=== PATIENT | male | born 2000 | race Caucasian/White ===

== ENCOUNTER 2019-08-13 16:02 | Emergency (ER) | payer SELFPAY ==
[~2019-08-13] VITALS: Ht 177 cm; Wt 60.0 kg
--- OUTSIDE RECORDS SUMMARY | 2019-08-13 16:07 | XMS REPORT ---
Author Author Valerio SCHULTE Y Organization [facility] Address [address] [place] [address] Care Team Providers Care Systems Test Analyst Name Role Phone NATASHA SCHULTE Unavailable PROBLEMS Type Condition ICD9-CM Code GYP20-NI Code Onset Dates Condition S tatus SNOMED Code Problem GARDASIL (HPV) DX V04.89 Active 42 6966185 Problem MENINGOCOCCAL DX V03.89 Active 235 19351 ALLERGIES No Information ENCOUNTERS Encounter Location Date Diagnosis [facility] [address] [id number] [id number] Jun, Dental examination Z01.20 [facility] [address] [id number] [place] [id number] May, Dental examination Z01.20 [facility] [address] [id number] [place] [id number] Apr, Dental examination Z01.20 [facility] [address] [id number] [place] [id number] Mar, Dental examination Z01.20 [facility] [address] [id number] [place] [id number] Jan, Dental examination Z01.20 [facility] [address] [id number] [place] [id number] Oct, Acute diffuse otitis externa of both ear s H60.313 [facility] [address] [id number] [place] [id number] Oct, Dental examination Z01.20 [facility] [address] [id number] [place] [id number] Jun, Dental examination Z01.20 [facility] [address] [id number] [place] [id number] 10 May, 2016 Encounter for dental examination and juan diego aning without abnormal findings Z01.20 [facility] [address] [facility]07757G [place] [id number] 14 Mar, 2016 Sports physical Z02.5 ; Exercise counseling Z71.89 and Dietary counseling Z71.3 [facility] [address] [id number] [place] [id number] Feb, Seborrheic dermatitis L21.9 and Acne vul garis L70.0 [facility] [address] [id number] [facility] [place] [id number] Nov, Scabies B86 [address] [id number] [place] [id number] 09 Jul, 2015 Sports physical Z02.5 ; Exercise counselor nurses' association ing Z71.89 and Dietary counseling Z71.3 [facility] [address] [facility] [address] [id number] [facility] [place] [id number] Apr, Seborrheic dermatitis L21.9 and Impacted cerumen of right ear H61.21 [facility] [address] [address] Aug, [facility] [address] [address] Aug, [facility] [address] [address] Jul, [facility] [address] [address] Jul, [facility] [address] [address] Jul, [facility] [address] [address] Jul, [facility] [address] [address] 14 Feb, 2013 [facility] [address] [address] Feb, [facility] [address] [facility]75[address] [place] [address] Nov, [facility] [address] [facility] [place] [address] Jul, [facility] [address] [facility] [place] [address] Feb, [facility] [address] [id number] [place] [address] Feb, [facility] [address] [facility] [place] [address] Feb, [facility] [address] [facility] [place] [address] Feb, IMMUNIZATIONS No Known Immunizations SOCIAL HISTORY Never Assessed REASON FOR VISIT PLAN OF CARE VITAL SIGNS Height 64 in 2013-08-03 Weight 107 lbs 2013-08-03 Temperature 97.1 degrees Fahrenheit 2013-08-03 Heart Rate 88 bpm 2013-08-03 Respiratory Rate 16 2013-08-03 Blood pressure systolic 100 mmHg 2013-08-03 Blood pressure diastolic 60 mmHg 2013-08-03 MEDICATIONS No Known Medications RESULTS No Results PROCEDURES No Known procedures INSTRUCTIONS MEDICATIONS ADMINISTERED No Known Medications
--- OUTSIDE RECORDS SUMMARY | 2019-08-13 16:07 | XMS REPORT ---
Author Author Valerio Barber Doctor Organization [facility] Address Unknown Phone Unavailable Care Team Providers Care Product Development Coordinator Name Role Phone Migration, Doctor Unavailable Unavailable PROBLEMS Type Condition ICD9-CM Code BIX99-QK Code Onset Dates Condition S tatus SNOMED Code Problem GARDASIL (HPV) DX V04.89 Active 42 1771787 Problem MENINGOCOCCAL DX V03.89 Active 235 16435 ALLERGIES No Information ENCOUNTERS Encounter Location Date Diagnosis [facility] [address] [id number] [id number] Jun, Dental examination Z01.20 [facility] [address] [place] [address] AVE [id number], [place] [id number] May, Dental examination Z01.20 [facility] [address] [place] [address] AVE [id number], [place] [id number] Apr, Dental examination Z01.20 [facility] [address] [place] [address] AV [id number], [place] [id number] Mar, Dental examination Z01.20 [facility] [address] [facility] AV [id number], [place] [id number] Jan, Dental examination Z01.20 [facility] [address] [place] [address] A[address] [id number], [place] [id number] Oct, Acute diffuse otitis externa of both ear s H60.313 [facility] [address] [place] [address] AVE [id number], [place] [id number] Oct, Dental examination Z01.20 [facility] [address] [id number], [place] [id number] Jun, Dental examination Z01.20 [facility] [address] [place] [address] AVE [id number], [place] [id number] May, Encounter for dental examination and juan diego aning without abnormal findings Z01.20 [facility] [address] [id number] [place], Yelitza S [id number] 14 Mar, 2016 Sports physical Z02.5 ; Exercise trauma counsellor ing Z71.89 and Dietary counseling Z71.3 [facility] [address] [id number], [place] [id number] Feb, Seborrheic dermatitis L21.9 and Acne vul garis L70.0 [facility] [address] [id number], [place] [id number] Nov, Scabies B86 [facility] [address] [facility] [address] [id number], [place] [id number] Jul, Sports physical Z02.5 ; Exercise trauma counsellor ing Z71.89 and Dietary counseling Z71.3 [facility] [address] [facility] [address] [id number], [place] [id number] Apr, Seborrheic dermatitis L21.9 and Impacted cerumen of right ear H61.21 [facility] [address] [facility] [id number] [address] [place] [address] Aug, [facility] [address] [facility] [id number] [address] [place] [address] Aug, [facility] [address] [facility] [id number] [address] [place] [address] Jul, [facility] [address] [facility] [id number] [address] [place] [address] Jul, [facility] [address] [facility] [id number] [address] [place] [address] Jul, [facility] [address] [facility] [id number] [address] [place] [address] Jul, [facility] [address] [facility] [id number] [address] [place] [address] 14 Feb, 2013 [facility] [address] [facility] [id number] [address] [place] [address] Feb, [facility] [address] [facility] [id number] [address] [place] [address] Nov, [facility] [address] [facility] [id number] [address] [place] [address] Jul, [facility] [address] [facility] [id number] [address] [place] [address] Feb, [facility] [address] [facility] [id number] [address] [place] [address] Feb, [facility] [address] [facility] [id number] [address] [place] [address] Feb, [facility] [address] [facility] [id number] [address] [place] [address] Feb, IMMUNIZATIONS No Known Immunizations SOCIAL HISTORY Never Assessed REASON FOR VISIT EMR-[facility] PLAN OF CARE VITAL SIGNS MEDICATIONS No Known Medications RESULTS No Results PROCEDURES No Known procedures INSTRUCTIONS MEDICATIONS ADMINISTERED No Known Medications
--- OUTSIDE RECORDS SUMMARY | 2019-08-13 16:07 | XMS REPORT ---
Author Author Valerio SALEH Organization [facility] Address [address] [place] [address] Care Team Providers Care Artificial Log Machine Operator Name Role Phone MICHELLE S[place]HO Unavailable PROBLEMS Type Condition ICD9-CM Code ZLI61-JX Code Onset Dates Condition S tatus SNOMED Code Problem MENINGOCOCCAL DX V03.89 Active 235 23534 Problem GARDASIL (HPV) DX V04.89 Active 42 4186676 ALLERGIES No Known Allergies ENCOUNTERS Encounter Location Date Diagnosis [facility] [address] [id number], [place] [id number] Jun, Dental examination Z01.20 [facility] [address] [id number], [place] [id number] May, [facility]01.20 [facility] [address] [id number], [place] [id number] Apr, Dental examination Z01.20 [facility] [address] [id number], [place] [id number] Mar, Dental examination Z01.20 [facility] [address] [id number], [place] [id number] Jan, Dental examination Z01.20 [facility] [address] [id number], [place] [id number] Oct, Acute diffuse otitis externa of both ear s H60.313 [facility] [id number] [place] [id number] Oct, Dental examination Z01.20 [facility] [address] [address] [id number], [place] [id number] Jun, Dental examination Z01.20 [facility] [address] [id number], [place] [id number] 10 May, 2016 Encounter for dental examination and juan diego aning without abnormal findings Z01.20 [facility] [address] [id number] Yelitza [place] S [id number] 14 Mar, 2016 Sports physical Z02.5 ; Exercise eap counselor ing Z71.89 and Dietary counseling Z71.3 [facility] [address] [id number], [place] [id number] Feb, Seborrheic dermatitis L21.9 and Acne vul garis L70.0 [facility] [address] [place] [address] AVE [id number], [place] [id number] Nov, Scabies B[address] [id number], [place] [id number] 09 Jul, 2015 Sports physical Z02.5 ; Exercise eap counselor ing Z71.89 and Dietary counseling Z71.[address] [id number], [place] [id number] 30 Apr, 2015 Seborrheic dermatitis L21.9 and Impacted cerumen of right ear H61.21 [facility] [address] [place] [id number] [address] [place] [address] 14 Aug, 2014 [facility] [address] [place] [address] [id number] [address] [place] [address] Aug, [facility] [address] [place] [place] [id number] [address] [place] [address] Jul, [facility] [address] [facility] [id number] [address] [place] [address] Jul, [facility] [address] [address] Jul, [facility] [address] [place] [id number] [address] [place] [address] Jul, [facility] [address] [id number] [address] [place] [address] Feb, [facility] [address] [id number] [address] [place] [address] Feb, [facility] [address] [id number] [address] [place] [address] Nov, [facility] [address] [id number] [address] [place] [address] Jul, [facility] [address] [id number] [address] [place] [address] Feb, [facility] [address] [id number] [address] [place] [address] Feb, [facility] [address] [id number] [address] [place] [address] Feb, [facility] [address] [facility] [id number] [address] [place] [address] Feb, IMMUNIZATIONS No Known Immunizations SOCIAL HISTORY Never Assessed REASON FOR VISIT restorative Ant. PLAN OF CARE Activity Details Follow Up prn Reason:restorative 1 sharon r VITAL SIGNS Height 68.5 in 2017-05-04 Blood pressure systolic 113 mmHg 2017-05-04 Blood pressure diastolic 71 mmHg 2017-05-04 MEDICATIONS Medication Instructions Dosage Frequency Start Date End Date Duration S tatus Ciprodex 0.3-0.1 % Otic Twice a day 4 drops into affected ear 12h 17 Oct, 2016 07 days Not-Taking RESULTS No Results PROCEDURES Procedure Date Ordered Result Body Site RESIN COMPOS - 3 SURFACES ANTERIOR May 04, 2017 INSTRUCTIONS MEDICATIONS ADMINISTERED No Known Medications
--- OUTSIDE RECORDS SUMMARY | 2019-08-13 16:07 | XMS REPORT ---
Author Author Valerio S[place]H Organization [facility] Address [address] [place] [address] Care Team Providers Care Menagerie Caretaker Name Role Phone MICHELLE S[place]HO Unavailable PROBLEMS Type Condition ICD9-CM Code WWP51-UP Code Onset Dates Condition S tatus SNOMED Code Problem MENINGOCOCCAL DX V03.89 Active 235 18515 Problem GARDASIL (HPV) DX V04.89 Active 42 [id number] ALLERGIES No Known Allergies ENCOUNTERS Encounter Location Date Diagnosis [facility] [address] [id number], [place] [id number] Jun, Dental examination Z01.20 [facility] [address] [id number], [place] [id number] May, Dental examination Z01.[address] [facility] [address] [address] [id number], [place] [id number] Apr, Dental examination Z01.[address] [address] [address] [id number], [place] [id number] Mar, Dental examination Z01.[address] [facility] [address] [id number], [place] [id number] Jan, Dental examination Z01.[address] [facility] [address] [id number], [place] [id number] Oct, Acute diffuse otitis externa of both ear s H60.[address] [facility] [id number] [place] [id number] Oct, Dental examination Z01.[address] [facility] [address] [id number], [place] [id number] Jun, Dental examination Z01.[address] [facility] [address] [id number], [place] [id number] 10 May, 2016 Encounter for dental examination and juan diego aning without abnormal findings Z01.20 [facility] [address] [id number] Yelitza PERDOMO S [id number] 14 Mar, 2016 Sports physical Z02.5 ; Exercise addiction counselor ing Z71.89 and Dietary counseling Z71.[address] [facility] [address] [id number], [place] [id number] Feb, Seborrheic dermatitis L21.9 and Acne vul garis L70.0 [facility] [address] [place] [address] AVE [id number], [place] [id number] Nov, Scabies B[address] [id number], [place] [id number] 09 Jul, 2015 Sports physical Z02.5 ; Exercise addiction counselor ing Z71.89 and Dietary counseling Z71.[address] [id number], [place] [id number] 30 Apr, 2015 Seborrheic dermatitis L21.9 and Impacted cerumen of right ear H61.21 [facility] [address] [id number] [address] [place] [address] 14 Aug, 2014 [facility] [address] [id number] [address] [place] [address] Aug, [facility] [address] [id number] [address] [place] [address] Jul, [facility] [address] [facility] [id number] [address] [place] [phone] Jul, [facility] [address] [phone] Jul, [facility] [address] [place] [id number] [address] [place] [address] Jul, [facility] [address] [id number] [address] [place] [address] Feb, [facility] [address] [id number] [address] [place] [address] Feb, [facility] [address] [id number] [address] [place] [address] Nov, [facility] [address] [id number] [address] [place] [address] Jul, [facility] [address] [id number] [address] [place] [address] Feb, [facility] [address] [id number] [address] [place] [address] Feb, [facility] [address] [id number] [address] [place] [address] Feb, [facility] [address] [id number] [address] [place] [address] Feb, IMMUNIZATIONS No Known Immunizations SOCIAL HISTORY Never Assessed REASON FOR VISIT restorative PLAN OF CARE VITAL SIGNS Blood pressure systolic 102 mmHg 2017-03-30 Blood pressure diastolic 57 mmHg 2017-03-30 MEDICATIONS Medication Instructions Dosage Frequency Start Date End Date Duration S tatus Ciprodex 0.3-0.1 % Otic Twice a day 4 drops into affected ear 12h Oct, 07 days Active RESULTS No Results PROCEDURES Procedure Date Ordered Result Body Site RESIN COMPOS - 1 SURFACE POSTERIOR Mar 30, 2017 RESIN COMPOS - 3 SURFACES POSTERIOR Mar 30, 2017 INSTRUCTIONS MEDICATIONS ADMINISTERED No Known Medications
--- OUTSIDE RECORDS SUMMARY | 2019-08-13 16:07 | XMS REPORT ---
Author Author Valerio MUÑOZ Organization [employer] Address Unknown Phone Unavailable Care Team Providers Care Progressive Assembler And Fitter Name Role Phone MYNOR MUÑOZ CP Unavailable Allergies, Adverse Reactions, Alerts Substance Reaction Event Type N.K.D.A. Info Not Available Non Drug Allergy Problems Problem Type Condition Code Onset Dates Condition Statu s Problem MENINGOCOCCAL DX V03.89 Active Assessment Scabies B86 Active Problem GARDASIL (HPV) DX V04.89 Active Medications Medication Code System Code Instructions Start Date End Date Status Dosage HydrOXYzine HCl [facility] [address]-67 25 MG Orally 3 times a day November 1 tablet as needed for itching Permethrin [facility] [address]-55 5 % Externally one time December 08, 2015 neck to ankles Procedures Procedure Coding System Code Date Office Visit, Est Pt., Level 3 CPT-4 92814 [facility] 2015 Vital Signs Date/Time: December 08, 2015 Cardiac Monitoring Heart Rate 82 bpm Weight 131.3 lbs Height 68 in Wt Percentile 34.81 % Ht Percentile 38.71 % Blood Pressure Diastolic 68 mmHg Blood Pressure Systolic 100 mmHg BMIPercentile 34.61 % Results No Known Results Summary Purpose [employer] Submission
--- OUTSIDE RECORDS SUMMARY | 2019-08-13 16:07 | XMS REPORT ---
Author Valerio Pack Organization [employer] Address Unknown Phone Unavailable Care Team Providers Care Wood Handler Name Role Phone COLLIN NANCE CP Unavailable Allergies, Adverse Reactions, Alerts Substance Reaction Event Type N.K.D.A. Info Not Available Non Drug Allergy Problems Problem Type Condition Code Onset Dates Condition Statu s Problem MENINGOCOCCAL DX V03.89 Active Assessment Seborrheic dermatitis L21.9 Active Problem GARDASIL (HPV) DX V04.89 Active Assessment Acne vulgaris L70.0 Active Medications Medication Code System Code Instructions Start Date End Date Status Dosage Ketoconazole [facility] [address]-60 2 % Scalp Daily Mar 06, 2016 May 05, 2016 leave on for 5 to 10 minutes before rinsing off Hydrocortisone [facility] [address]-93 2.5 % Affected a reas on the face. Avoid areas with acne Twice a day Mar 06, 2016 Apr 05, 2016 1 applicat ion to affected area Tazarotene [facility] [address]-57 0.1 % Externally Once a day Mar 06 6 1 application to affected area in the evening Doxycycline Monohydrate [facility] [address]-48 100 MG Orally ev audie 12 hrs Mar 06, 2016 Mar 20, 2016 1 capsule HydrOXYzine HCl [facility] [address]-83 25 MG Orally 3 times a day November 1 tablet as needed for itching Procedures Procedure Coding System Code Date Office Visit, Est Pt., Level 3 CPT-[address] 2015 Vital Signs Date/Time: Mar 06, 2016 Cardiac Monitoring Heart Rate 78 bpm Weight 133.1 lbs Height 68.2 in Ht Percentile 40.06 % BMI 20.12 Index Blood Pressure Diastolic 72 mmHg Blood Pressure Systolic 98 mmHg BMIPercentile 35.39 % Wt Percentile 35.81 % Results No Known Results Summary Purpose [employer] Submission
--- OUTSIDE RECORDS SUMMARY | 2019-08-13 16:07 | XMS REPORT ---
Author Author Valerio SALEH Organization [facility] Address [address] [place] [address] Care Team Providers Care Employment Director Name Role Phone MICHELLE SALEHO Unavailable PROBLEMS Type Condition ICD9-CM Code [id number] Code Onset Dates Condition S tatus SNOMED Code Problem MENINGOCOCCAL DX V03.89 Active 235 57819 Problem GARDASIL (HPV) DX V04.89 Active 42 1697254 ALLERGIES No Known Allergies ENCOUNTERS Encounter Location Date Diagnosis [facility] [address] [id number], [place] [id number] Jun, Dental examination Z01.20 [facility] [address] [id number], [place] [id number] May, [facility] [address] [address] [id number], [place] [id number] Apr, Dental examination Z01.20 [facility] [address] [id number], [place] [id number] Mar, Dental examination Z01.20 [facility] [address] [id number], [place] [id number] Jan, Dental examination Z01.20 [facility] [address] [id number], [place] [id number] Oct, Acute diffuse otitis externa of both ear s H60.313 [facility] [id number] [place] [address] [id number] Oct, Dental examination Z01.20 [facility] [address] [id number], [place] [id number] Jun, Dental examination Z01.20 [facility] [address] [id number], [place] [id number] 10 May, 2016 Encounter for dental examination and juan diego aning without abnormal findings Z01.20 [facility] [address] [id number] Yelitza PERDOMO S [id number] 14 Mar, 2016 Sports physical Z02.5 ; Exercise sales counselor ing Z71.89 and Dietary counseling Z71.3 [facility] [address] [id number], [place] [id number] Feb, Seborrheic dermatitis L21.9 and Acne vul garis L70.0 [facility] [address] [place] [address] AVE [id number], [place] [id number] Nov, Scabies B86 [address] [id number], [place] [id number] 09 Jul, 2015 Sports physical Z02.5 ; Exercise sales counselor ing Z71.89 and Dietary counseling Z71.[address] [id number], [place] [id number] 30 Apr, 2015 Seborrheic dermatitis L21.9 and Impacted cerumen of right ear H61.21 [facility] [address] [id number] [address] [place] [phone] 14 Aug, 2014 [facility] [address] [id number] [address] [place] [phone] Aug, [facility] [address] [id number] [address] [place] [phone] Jul, [facility] [address] [facility] [id number] [address] [place] [phone] Jul, [facility] [address] [phone] Jul, [facility] [address] [id number] [address] [place] [phone] Jul, [facility] [address] [id number] [address] [place] [phone] Feb, [facility] [address] [id number] [address] [place] [phone] Feb, [facility] [address] [id number] [address] [place] [phone] Nov, [facility] [address] [id number] [address] [place] [phone] Jul, [facility] [address] [id number] [address] [place] [phone] Feb, [facility] [address] [id number] [address] [place] [phone] Feb, [facility] [address] [id number] [address] [place] [phone] Feb, [facility] [address] [id number] [address] [place] [phone] Feb, IMMUNIZATIONS No Known Immunizations SOCIAL HISTORY Never Assessed REASON FOR VISIT Restorative PLAN OF CARE Activity Details Follow Up prn Reason:fillings- 1hour VITAL SIGNS Blood pressure systolic 117 mmHg 2017-02-02 Blood pressure diastolic 68 mmHg 2017-02-02 MEDICATIONS Medication Instructions Dosage Frequency Start Date End Date Duration S tatus Ciprodex 0.3-0.1 % Otic Twice a day 4 drops into affected ear 12h 17 Oct, 2016 07 days Active RESULTS No Results PROCEDURES Procedure Date Ordered Result Body Site CORE BUILDUP INCLUDING ANY PINS Feb 02, 2017 CORE BUILDUP INCLUDING ANY PINS Feb 02, 2017 PULP CAP - INDIRECT Feb 02, 2017 PULP CAP - DIRECT Feb 02, 2017 INSTRUCTIONS MEDICATIONS ADMINISTERED No Known Medications
--- OUTSIDE RECORDS SUMMARY | 2019-08-13 16:07 | XMS REPORT ---
Author Author Valerio Barber Doctor Organization [facility] Address Unknown Phone Unavailable Care Team Providers Care Youth Program Director Name Role Phone Migration, Doctor Unavailable Unavailable PROBLEMS Type Condition ICD9-CM Code SOD99-GU Code Onset Dates Condition S tatus SNOMED Code Problem GARDASIL (HPV) DX V04.89 Active 42 9901573 Problem MENINGOCOCCAL DX V03.89 Active 235 61067 ALLERGIES No Information ENCOUNTERS Encounter Location Date [facility] [address] [id number], [place] [id number] Jun, Dental examination Z01.20 [facility] [employer] [place] [address] AVE [id number], [place] [id number] May, Dental examination Z01.20 [facility] [employer] [place] [address] AVE [id number], [place] [id number] Apr, Dental examination Z01.20 [facility] [employer] [place] [address] AV [id number], [place] [id number] Mar, Dental examination Z01.20 [facility] [employer] [facility] [address] [id number], [place] [id number] Jan, Dental examination Z01.20 [facility] [employer] [place] [address] AVE [id number], [place] [id number] Oct, Acute diffuse otitis externa of both ear s H60.313 [facility] [employer] [place] [address] AVE [id number], [place] [id number] Oct, Dental examination Z01.20 [facility] [employer] [id number], [place] [id number] Jun, Dental examination Z01.20 [facility] [employer] [place] [address] AVE [id number], [place] [id number] May, Encounter for dental examination and juan diego aning without abnormal findings Z01.20 [facility] [address] [id number] [place], Yelitza S [id number] 14 Mar, 2016 Sports physical Z02.5 ; Exercise cancer genetic counselor ing Z71.89 and Dietary counseling Z71.3 [facility] [address] [id number], [place] [id number] Feb, Seborrheic dermatitis L21.9 and Acne vul garis L70.0 [facility] [address] [id number], [place] [id number] Nov, Scabies B86 [facility] [address] [facility] [address] [id number], [place] [id number] Jul, Sports physical Z02.5 ; Exercise cancer genetic counselor ing Z71.89 and Dietary counseling Z71.3 [facility] [address] [facility] [address] [id number], [place] [id number] Apr, Seborrheic dermatitis L21.9 and Impacted cerumen of right ear H61.21 [facility] [address] [facility] [id number] [address] [place] [phone] Aug, [facility] [address] [facility] [id number] [address] [place] [phone] Aug, [facility] [address] [facility] [id number] [address] [place] [phone] Jul, [facility] [address] [facility] [id number] [address] [place] [phone] Jul, [facility] [address] [facility] [id number] [address] [place] [phone] Jul, [facility] [address] [facility] [id number] [address] [place] [phone] Jul, [facility] [address] [facility] [id number] [address] [place] [phone] 14 Feb, 2013 [facility] [address] [facility] [id number] [address] [place] [phone] Feb, [facility] [address] [id number] [address] [place] [phone] Nov, [facility] [address] [id number] [address] [place] [phone] Jul, [facility] [address] [id number] [address] [place] [phone] Feb, [facility] [address] [id number] [address] [place] [phone] Feb, [facility] [address] [id number] [address] [place] [phone] Feb, [facility] [address] [facility] [id number] [address] [place] [phone] Feb, IMMUNIZATIONS No Known Immunizations SOCIAL HISTORY Never Assessed REASON FOR VISIT EMR[facility] PLAN OF CARE VITAL SIGNS MEDICATIONS Medication Instructions Dosage Frequency Start Date End Date Duration S tatus ZyrTEC 10 mg chew 1 tablet (10 mg) by oral route once daily Jul, Active Amoxicillin 400 mg/5 mL 15 mL by Oral route 2 times pe r day for 10 day(s) Jul, Active PredniSONE 20 mg 1 tablet by Oral route 2 times per da y for 3 day(s) Nov, Active Patanol 0.1 % 1 drop by Ophthalmic route 2 times per day Jul, Active Flonase 50 mcg/actuation 1 sprays by Bautista al route 2 times per day in each nostril Jul, Active RESULTS No Results PROCEDURES No Known procedures INSTRUCTIONS MEDICATIONS ADMINISTERED No Known Medications
--- OUTSIDE RECORDS SUMMARY | 2019-08-13 16:07 | XMS REPORT ---
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.89 Active 42 3839401 ALLERGIES No Known Allergies ENCOUNTERS Encounter Location Date Diagnosis [facility] [address] [id number], [place] [id number] Jun, Dental examination Z01.20 [facility] [address] [id number], [place] [id number] May, [facility] [address] [address] [id number], [place] [id number] Apr, Dental examination Z01.20 [facility] [address] [id number], [place] [id number] Mar, Dental examination Z01.20 [facility] [address] [id number], [place] [id number] Jan, [facility] examination Z01.20 [facility] [address] [id number], [place] [id number] Oct, Acute diffuse otitis externa of both ear s H60.313 [facility] [address] [id number] [place] [address] [id number] Oct, Dental examination Z01.20 [facility] [address] [id number], [place] [id number] Jun, Dental examination Z01.[address] [facility] [address] [id number], [place] [id number] 10 May, 2016 Encounter for dental examination and juan diego aning without abnormal findings Z01.20 [facility] [address] [id number] Yelitza PERDOMO S [id number] 14 Mar, 2016 Sports physical Z02.5 ; Exercise counseling program leader ing Z71.89 and Dietary counseling Z71.[address] [facility] [address] [id number], [place] [id number] Feb, Seborrheic dermatitis L21.9 and Acne vul garis L70.0 [facility] [address] [place] [address] AVE [id number], [place] [id number] Nov, Scabies B[address] [id number], [place] [id number] 09 Jul, 2015 Sports physical Z02.5 ; Exercise counseling program leader ing Z71.89 and Dietary counseling Z71.[address] [id number], [place] [id number] 30 Apr, 2015 Seborrheic dermatitis L21.9 and Impacted cerumen of right ear H61.21 [facility] [address] [id number] [address] [place] [phone] 14 Aug, 2014 [facility] [address] [id number] [address] [place] [phone] Aug, [facility] [address] [id number] [address] [place] [phone] Jul, [facility] [address] [facility] [id number] [address] [place] [phone] Jul, [facility] [address] [phone] Jul, [facility] [address] [id number] [address] [place] [phone] Jul, [facility] [address] [id number] [address] [place] [phone] Feb, [facility] [address] [id number] [address] [place] [phone] Feb, [facility] [address] [id number] [address] [place] [phone] Nov, [facility] [address] [id number] [address] [place] [phone] Jul, [facility] [address] [id number] [address] [place] [phone] Feb, [facility] [address] [id number] [address] [place] [phone] Feb, [facility] [address] [id number] [address] [place] [phone] Feb, [facility] [address] [facility] [id number] [address] [place] [phone] Feb, IMMUNIZATIONS No Known Immunizations SOCIAL HISTORY Never Assessed REASON FOR VISIT restorative PLAN OF CARE Activity Details Follow Up prn Reason:1 hour restorativ e VITAL SIGNS Height 68.5 in 2017-07-06 Blood pressure systolic 101 mmHg 2017-07-06 Blood pressure diastolic 61 mmHg 2017-07-06 MEDICATIONS Medication Instructions Dosage Frequency Start Date End Date Duration S tatus Ciprodex 0.3-0.1 % Otic Twice a day 4 drops into affected ear 12h 17 Oct, 2016 07 days Not-Taking RESULTS No Results PROCEDURES Procedure Date Ordered Result Body Site RESIN COMPOS - 3 SURFACES ANTERIOR Jul 06, 2017 PULP CAP - DIRECT Jul 06, 2017 INSTRUCTIONS MEDICATIONS ADMINISTERED No Known Medications
--- OUTSIDE RECORDS SUMMARY | 2019-08-13 16:07 | XMS REPORT ---
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 [address] [id number], [place] [id number] Jun, Dental examination Z01.20 [facility] [address] [place] [address] AVE [id number], [place] [id number] May, Dental examination Z01.20 [facility] Sessions[facility] [address] [place] [address] A[place] [id number], [place] [id number] Apr, Dental examination Z01.20 [facility] Sessions[facility] [address] [place] [address] AV [id number], [place] [id number] Mar, Dental examination Z01.20 [facility] Sessions[facility] [employer] [facility] [address] [id number], [place] [id number] Jan, Dental examination Z01.20 [facility] Sessions[facility] [address] [place] [address] A[place] [id number], [place] [id number] Oct, Acute diffuse otitis externa of both ear s H60.313 [facility] [address] [place] [address] AVE [id number], [place] [id number] Oct, Dental examination Z01.20 [facility] [address] [id number], [place] [id number] Jun, Dental examination Z01.20 [facility] Sessions[facility] [address] [place] [address] A[address] [id number], [place] [id number] May, Encounter for dental examination and juan diego aning without abnormal findings Z01.20 [facility] [address] [id number] [place], Yelitza S [id number] 14 Mar, 2016 Sports physical Z02.5 ; Exercise job placement counselor ing Z71.89 and Dietary counseling Z71.3 [facility] [address] [id number], [place] [id number] Feb, Seborrheic dermatitis L21.9 and Acne vul garis L70.0 [facility] [address] [id number], [place] [id number] Nov, Scabies B86 [facility] [address] [id number], [place] [id number] Jul, Sports physical Z02.5 ; Exercise job placement counselor ing Z71.89 and Dietary counseling Z71.3 [facility] [address] [id number], [place] [id number] Apr, Seborrheic dermatitis L21.9 and Impacted cerumen of right ear H61.21 [facility] [address] [facility] [id number] [address] [place] [phone] Aug, [facility] [address] [facility] [id number] [address] [place] [phone] Aug, [facility] [address] [facility] [id number] [address] [place] [phone] Jul, [facility] [address] [facility] [id number] [address] [place] [phone] Jul, [facility] [address] [facility] [id number] [address] [place] [phone] Jul, [facility] [address] [facility] [id number] [address] [place] [phone] Jul, [facility] [address] [facility] [id number] [address] [place] [phone] 14 Feb, 2013 [facility] [address] [facility] [id number] [address] [place] [phone] Feb, [facility] [address] [facility] [id number] [address] [place] [phone] Nov, [facility] [address] [facility] [id number] [address] [place] [phone] Jul, [facility] [address] [facility] [id number] [address] [place] [phone] Feb, [facility] [address] [facility] [id number] [address] [place] [phone] Feb, [facility] [address] [facility] [id number] [address] [place] [phone] Feb, [facility] [address] [facility] [id number] [address] [place] [phone] Feb, IMMUNIZATIONS No Known Immunizations SOCIAL HISTORY Never Assessed REASON FOR VISIT PLAN OF CARE VITAL SIGNS Height 63 in 2014-08-03 Weight 120.12 lbs 2014-08-03 Temperature 96.8 degrees Fahrenheit 2014-08-03 Heart Rate 80 bpm 2014-08-03 Respiratory Rate 16 2014-08-03 Blood pressure systolic 120 mmHg 2014-08-03 Blood pressure diastolic 72 mmHg 2014-08-03 MEDICATIONS No Known Medications RESULTS No Results PROCEDURES No Known procedures INSTRUCTIONS MEDICATIONS ADMINISTERED No Known Medications
--- OUTSIDE RECORDS SUMMARY | 2019-08-13 16:08 | XMS REPORT ---
Author Author Valerio MONACO Organization [employer] Address Unknown Phone Unavailable Care Team Providers Care Recycler Forklift Driver Truck Driver Name Role Phone SASKIA MOANCO CP Unavailable Allergies, Adverse Reactions, Alerts Substance Reaction Event Type N.K.D.A. Info Not Available Non Drug Allergy Problems Problem Type Condition Code Onset Dates Condition Statu s Problem MENINGOCOCCAL DX V03.89 Active Assessment Seborrheic dermatitis L21.9 Active Problem GARDASIL (HPV) DX V04.89 Active Assessment Impacted cerumen of right ear H61.21 Active Medications Medication Code System Code Instructions Start Date End Date Status Dosage Ketoconazole [facility] [address]-93 2 % Externally Twice a day May 23, 2015 Jun 20, 2015 1 application to affected ar ea Procedures Procedure Coding System Code Date Office Visit, Est Pt., Level 3 CPT-4 69385 D 2014 EAR IRRIGATION CPT-4 39319 May 23, 2015 Vital Signs Date/Time: May 23, 2015 Temperature 97.0 F BMIPercentile 19.35 % Weight 122.0 lbs Height 68 in BMI 18.55 Index Blood Pressure Diastolic 70 mmHg Blood Pressure Systolic 120 mmHg Cardiac Monitoring Heart Rate 72 bpm Wt Percentile 26.89 % Ht Percentile 44.75 % Results Name Result Date Reference Range Unit Abnormali ty Flag EAR LAVAGE Summary Purpose [employer] Submission
--- OUTSIDE RECORDS SUMMARY | 2019-08-13 16:08 | XMS REPORT | Continuity of Care Document ---
Author Organization Unknown Address Unknown Phone Unavailable Allergies There is no data. Medications There is no data. Problems Date Dx Coded Attending Type Code Diagnosis Diagnosed By 03/23/2012 SASKIA MONACO APRN V2 0.2 visit for: well child visit 03/23/2012 V20.2 visi t for: well child visit 03/23/2012 SAVANNAH ARGUELLO DO V20.2 visit for: well child visit 03/23/2012 SAVANNAH ARGUELLO DO V20.2 visit for: well child visit 08/11/2012 SASKIA MONACO APRN V03.89 MENINGOCOCCAL DX 08/11/2012 SASKIA MONACO APRN V04.89 GARDASIL (HPV) DX 08/11/2012 SASKIA MONACO APRN V0 5.4 VARICELLA DX 08/11/2012 SASKIA MONACO APRN V0 6.1 TDAP DX 08/11/2012 V03.89 MEN INGOCOCCAL DX 08/11/2012 V04.89 GAR DASIL (HPV) DX 08/11/2012 V05.4 VARI DORA DX 08/11/2012 V06.1 TDAP DX 08/11/2012 ARGUELLO SAVANNAH MARC V03.89 MENINGOCOCCAL DX 08/11/2012 SAVANNAH ARGUELLO DO K V04.89 GARDASIL (HPV) DX 08/11/2012 SAVANNAH ARGUELLO DO V05.4 VARICELLA DX 08/11/2012 SAVANNAH ARGUELLO DO K V06.1 TDAP DX 08/11/2012 SAVANNAH ARGUELLO DO K V03.89 MENINGOCOCCAL DX 08/11/2012 SAVANNAH ARGUELLO DO K V04.89 GARDASIL (HPV) DX 08/11/2012 SAVANNAH ARGUELLO DO K V05.4 VARICELLA DX 08/11/2012 SAVANNAH ARGUELLO DO K V06.1 TDAP DX 11/23/2012 692.6 POIS ON SUKHI 11/23/2012 SAVANNAH ARGUELLO DO 692.6 POISON SUKHI 11/23/2012 SAVANNAH ARGUELLO DO 692.6 POISON SUKHI 08/03/2013 SAVANNAH ARGUELLO DO 372.30 CONJUNCTIVITIS UNSPECIFIED 08/03/2013 SAVANNAH ARGUELLO DO 477.9 ALLERGIC RHINITIS CAUSE UNSPECIFIED Procedures There is no data. Results There is no data. Encounters ACCT No. Visit Date/Time Discharge Status Pt. Type Provider Facility Loc./Unit Complaint [id number] 08/03/2013 08:29:00 08/03/2013 23:59: 59 [facility] Outpatient SAVANNAH ARGUELLO DO [id number] 03/07/2013 15:42:00 03/07/2013 23:59: [address] [facility] Outpatient SAVANNAH ARGUELLO DO [id number] 08/11/2012 16:29:00 08/11/2012 23:59: [address] [facility] Outpatient SASKIA MONACO APRN [id number] 11/23/2012 13:33:00 Document Registration [id number] 08/11/2012 17:02:10 RECURRING [id number] 07/06/2017 09:00:00 07/06/2017 23:59:[address] [facility] Outpatient SASKIA MONACO APRN [facility]
--- OUTSIDE RECORDS SUMMARY | 2019-08-13 16:08 | XMS REPORT ---
Author Author Valerio SALEH Organization [facility] Address [address] [place] [address] Care Team Providers Care Redevelopment Manager Name Role Phone ALEX SALEH Unavailable PROBLEMS Type Condition ICD9-CM Code [id number] Code Onset Dates Condition S tatus SNOMED Code Problem Encounter for dental examination and juan diego aning without abnormal findings Z01.20 Active 966866255 Problem MENINGOCOCCAL DX V03.89 Active Problem GARDASIL (HPV) DX V04.89 Active ALLERGIES No Known Allergies SOCIAL HISTORY Never Assessed PLAN OF CARE Activity Details Follow Up prn Reason:O & R #5- 1.5 sharon rs VITAL SIGNS MEDICATIONS Unknown Medications RESULTS No Results PROCEDURES Procedure Date Ordered Result Body Site COMP ORAL EVALUATION - NEW/EST PT Jul 21, 2016 INTRAORL-PERIAPICAL 1 FILM [id number] Jul 21, 2016 PANORAMIC FILM SEE ALSO CODE [id number] Jul 21, 2016 INTRAORL-PERIAPICAL EA ADD FILM Jul 21, 2016 INTRAORL-PERIAPICAL EA ADD FILM Jul 21, 2016 BITEWINGS - FOUR FILMS Jul 21, 2016 INTRAORL-PERIAPICAL EA ADD FILM Jul 21, 2016 IMMUNIZATIONS No Known Immunizations
--- OUTSIDE RECORDS SUMMARY | 2019-08-13 16:08 | XMS REPORT ---
Author Author Valerio MUÑOZ [facility] Address [address] [place] [address] Care Team Providers Care Child Care Specialist Name Role Phone MYNOR MUÑOZ Unavailable PROBLEMS Type Condition ICD9-CM Code [id number] Code Onset Dates Condition S tatus SNOMED Code Problem GARDASIL (HPV) DX V04.89 Active Problem MENINGOCOCCAL DX V03.89 Active Assessment Dietary counseling Z71.3 14 Mar, 2016 Active 456943299 Assessment Sports physical Z02.5 Mar, Active [id number] Assessment Exercise counseling Z71.89 Mar, Active [id number] ALLERGIES Substance Reaction Event Type Date Status N.K.D.A. Unknown Non Drug Allergy Mar, Unknown SOCIAL HISTORY No smoking Hx information available PLAN OF CARE VITAL SIGNS Height 68.5 in 2016-04-07 Weight 134 lbs 2016-04-07 Heart Rate 68 bpm 2016-04-07 Respiratory Rate 18 2016-04-07 BMI 20.08 kg/m2 2016-04-07 Blood pressure systolic 100 mmHg 2016-04-07 Blood pressure diastolic 68 mmHg 2016-04-07 MEDICATIONS No Known Medications RESULTS No Results PROCEDURES Procedure Date Ordered Related Diagnosis Body Site VISUAL ACUITY SCREEN Apr 07, 2016 Preventive Care Est Pt. Age 12-17 Apr 07, 2016 IMMUNIZATIONS No Known Immunizations
--- OUTSIDE RECORDS SUMMARY | 2019-08-13 16:08 | XMS REPORT ---
Author Author Valerio RODRIGUEZ Organization [facility] Address [address] [place] [address] Care Team Providers Care Copy Technician Name Role Phone YOSVANY RODRIGUEZ Unavailable PROBLEMS Type Condition ICD9-CM Code SQI75-ZI Code Onset Dates Condition S tatus SNOMED Code Problem Encounter for dental examination and juan diego aning without abnormal findings Z01.20 Active [id number] Problem MENINGOCOCCAL DX V03.89 Active Problem GARDASIL (HPV) DX V04.89 Active ALLERGIES Substance Reaction Event Type Date Status N.K.D.A. Unknown Non Drug Allergy May, Unknown SOCIAL HISTORY No smoking Hx information available PLAN OF CARE VITAL SIGNS MEDICATIONS Unknown Medications RESULTS No Results PROCEDURES Procedure Date Ordered Related Diagnosis Body Site PROPHYLAXIS - ADULT Jun 03, 2016 TOPICAL FLUORIDE VARNISH Jun 03, 2016 IMMUNIZATIONS No Known Immunizations
[2019-08-13 16:22] LABS: BASOPHILS % (AUTO) 0 % (0-10); EOSINOPHILS % (AUTO) 0 % (0-10); HEMATOCRIT 48 % (40-54); HEMOGLOBIN 17.1 G/DL (13.3-17.7); LYMPHOCYTES # (AUTO) 1.3 X 10^3 (1.0-4.0); LYMPHOCYTES % (AUTO) 15 % (12-44); MEAN CORPUSCULAR HEMOGLOBIN 29 PG (25-34); MEAN CORPUSCULAR HGB CONC 36 G/DL (32-36); MEAN CORPUSCULAR VOLUME 82 FL (80-99); MEAN PLATELET VOLUME 9.3 FL (7.4-10.4); MONOCYTES # (AUTO) 0.7 X 10^3 (0.0-1.0); MONOCYTES % (AUTO) 8 % (0-12); NEUTROPHILS # (AUTO) 6.6 X 10^3 (1.8-7.8); NEUTROPHILS % (AUTO) 77 % (42-75); PLATELET COUNT 236 10^3/uL (130-400); RED CELL DISTRIBUTION WIDTH 11.7 % (10.0-14.5); WHITE BLOOD COUNT 8.6 10^3/uL (4.3-11.0)
--- NOTE | 2019-08-13 16:23 | ED EENT ---
History of Present Illness General Chief Complaint: Dental Problems/Pain Stated Complaint: DENTAL PAIN Nursing Triage Note: THE PT IS AMBULATORY TO THE ROOM WITHOUT DIFFICULTY. NO DISTRESS IS SEEN ON ARRIVAL. LOC IS [facility]ORMW[facility] FOR THE PT. Source: patient Exam Limitations: no limitations History of Present Illness Date Seen by Provider: Aug 13, 2019 Time Seen by Provider: 16:21 Initial Comments To ER with right lower dental pain for about a week. On 08/10/19 he was seen at [facility] given a dental block for pain control, since then he's had worsening trismus, swelling to the right side of the mandible. He is on Tylenol with Codeine and amoxicillin but denies much improvement. Timing/Duration: abrupt Severity: moderate Location: dental Associated Symptoms: facial pain/swelling Allergies and Home Medications Allergies Coded Allergies: No Known Drug Allergies (Unverified , 08/13/19) Patient Home Medication List Home Medication List Reviewed: Yes Review of Systems Review of Systems Constitutional: see HPI Eyes: No Symptoms Reported Ears: No Symptoms Reported Nose: no symptoms reported Mouth: see HPI, pain Throat: pain Respiratory: no symptoms reported Past Rzjuinm-Yktuol-Tkzxte Hx Patient Social History Recent Foreign Travel: No Contact w/Someone Who Travel: No Recent Infectious Disease Expo: No Physical Abuse: No Sexual Abuse: No Mistreated: No Fear: No Physical Exam Vital Signs Vital Signs - First Documented 08/13/19 16:10 Temp 36.7 Pulse 130 Resp 16 B/P (MAP) 120/80 (93) Height, Weight, BMI Height: '" Weight: lbs. oz. kg; 19.00 BMI Method: General Appearance: WD/WN, no apparent distress Eyes: bilateral eye normal inspection, bilateral eye PERRL, bilateral eye EOMI Ears: bilateral ear auricle normal, bilateral ear canal normal, bilateral ear T M normal Mouth/Throat: normal mouth inspection, pharynx normal, tonsillar swelling (mild swelling to the right side of the mandible without fluctuant abscess palpable on the buccal surface.) Neck: non-tender, full range of motion Respiratory: lungs clear, normal breath sounds, no respiratory distress, no accessory muscle use Gastrointestinal: normal bowel sounds, non tender Neurologic/Psychiatric: alert, normal mood/affect, oriented x 3 Skin: normal color, warm/dry Progress/Results/Core Measures Results/Orders Lab Results Laboratory Tests Test 08/13/19 16:11 Range/Units White Blood Count 8.6 4.3-11.0 10^3/uL Red Blood Count 5.83 4.35-5.85 10^6/uL Hemoglobin 17.1 13.3-17.7 G/DL Hematocrit 48 40-54 % Mean Corpuscular Volume 82 80-99 FL Mean Corpuscular Hemoglobin 29 25-34 PG Mean Corpuscular Hemoglobin Concent 36 32-36 G/DL Red Cell Distribution Width 11.7 10.0-14.5 % Platelet Count 236 130-400 10^3/uL Mean Platelet Volume 9.3 7.4-10.4 FL Neutrophils (%) (Auto) 77 H 42-75 % Lymphocytes (%) (Auto) 15 12-44 % Monocytes (%) (Auto) 8 0-12 % Eosinophils (%) (Auto) 0 0-10 % Basophils (%) (Auto) 0 0-10 % Neutrophils # (Auto) 6.6 1.8-7.8 X 10^3 Lymphocytes # (Auto) 1.3 1.0-4.0 X 10^3 Monocytes # (Auto) 0.7 0.0-1.0 X 10^3 Eosinophils # (Auto) 0.0 0.0-0.3 10^3/uL Basophils # (Auto) 0.0 0.0-0.1 10^3/uL Sodium Level 137 135-145 MMOL/L Potassium Level 4.8 3.6-5.0 MMOL/L Chloride Level 100 98-107 MMOL/L Carbon Dioxide Level 21 21-32 MMOL/L Anion Gap 16 H 5-14 MMOL/L Blood Urea Nitrogen 24 H 7-18 MG/DL Creatinine 1.02 0.60-1.30 MG/DL Estimat Glomerular Filtration Rate > 60 BUN/Creatinine Ratio 24 Glucose Level 69 L 70-105 MG/DL Calcium Level 10.1 8.5-10.1 MG/DL Monoscreen NEGATIVE NEGATIVE My Orders Orders - ANNABEL HOFFMAN APRN Cbc With Automated Diff (08/13/19 16:16) Basic Metabolic Panel (08/13/19 16:16) Monotest (08/13/19 16:16) Ed Iv/Invasive Line Start (08/13/19 16:16) Ct Neck (Soft Tissue) W (08/13/19 16:16) Ketorolac Injection (Toradol Injection) (08/13/19 16:30) Lactated Ringers (Lr 1000 Ml Iv Solution (08/13/19 16:45) Clindamycin 900 Mg/50 Ml Ivpb (Cleocin P (08/13/19 16:45) Iohexol Injection (Omnipaque 350 Mg/Ml 1 (08/13/19 16:45) Received Contrast (Hold Metformin- Contr (08/13/19 16:45) Ns (Ivpb) (Sodium Chloride 0.9% Ivpb Bag (08/13/19 16:45) Medications Given in ED Current Medications Medications Dose Ordered Sig/Osiel Route Start Time Stop Time Status Last Admin Dose Admin Iohexol 75 ml ONCE ONCE IV 08/13/19 16:45 08/13/19 16:46 DC 08/13/19 16:50 75 ML Ketorolac Tromethamine 30 mg ONCE ONCE IVP 08/13/19 16:30 08/13/19 16:31 DC 08/13/19 16:22 30 MG Sodium Chloride 100 ml ONCE ONCE IV 08/13/19 16:45 08/13/19 16:46 DC 08/13/19 16:50 80 ML Vital Signs/I&O 08/13/19 16:10 Temp 36.7 Pulse 130 Resp 16 B/P (MAP) 120/80 (93) Blood Pressure Mean: 93 Departure Impression Primary Impression: Dental abscess Disposition: 01 HOME, SELF-CARE Condition: Stable Departure-Patient Inst. Decision time for Depature: 17:02 Referrals: NO,LOCAL PHYSICIAN (PCP/Family) Primary Care Physician Patient Instructions: Tooth Abscess (DC) Add. Discharge Instructions: 1. Stop the Tylenol with Codeine and start new pain medication 2. Stop the amoxicillin, start the new antibiotic 3. Return to ER for any concerns. All discharge instructions reviewed with patient and/or family. Voiced understanding. Scripts Clindamycin HCl (Clindamycin HCl) 300 Mg Capsule 300 MG PO TID, #21 CAP Prov: ANNABEL HOFFMAN APRN 08/13/19 ANNABEL HOFFMAN APRN Aug 13, 2019 16:23
[2019-08-13] MEDS ORDERED: KETOROLAC 30 MG/ML VIAL IVP ONE (16:30)
[2019-08-13 16:37] LABS: BUN/CREATININE RATIO 24; CALCIUM 10.1 MG/DL (8.5-10.1); CARBON DIOXIDE 21 MMOL/L (21-32); CHLORIDE 100 MMOL/L (98-107); CREATININE SERUM 1.02 MG/DL (0.60-1.30); GFR ESTIMATED > 60; GLUCOSE 69 MG/DL (70-105); POTASSIUM 4.8 MMOL/L (3.6-5.0); SODIUM 137 MMOL/L (135-145)
[2019-08-13] MEDS ORDERED: CLINDAMYCIN 900 MG/50 ML IVPB 50 ML IV ONE (16:45)
[2019-08-13] MEDS ORDERED: NS 100 ML (IVPB) BAG IV ONE (16:45)
[2019-08-13] MEDS ORDERED: IOHEXOL 350 MG/ML 100 ML (OMNIPAQUE 350) VIAL IV ONE (16:45)
[2019-08-13] MEDS ORDERED: HOLD METFORMIN - RECEIVED CONTRAST 20 ML VIAL IV SCH (16:45)
[2019-08-13] MEDS ORDERED: LACTATED RINGERS 1,000 ML IV SCH (16:45)
--- NOTE | 2019-08-13 17:00 | Diagnostic Imaging Report ---
PROCEDURE: CT neck soft tissue with contrast. TECHNIQUE: Multiple contiguous axial images were obtained through the neck after the administration of contrast. Auto Exposure Controls were utilized during the CT exam to meet ALARA standards for radiation dose reduction. INDICATION: Dental pain. FINDINGS: There are periapical lucencies and bony erosions adjacent to the roots of the bilateral maxillary bicuspids. On the left there is anterior cortical breakthrough but no adjacent soft tissue abscess. There is some lip edema, bilaterally. No fluid collection. No suspicious periapical mandibular lucencies. Nasopharynx, oropharynx and hypopharynx are unremarkable. The prevertebral and retropharyngeal spaces are unremarkable. The epiglottis is unremarkable. No airway embarrassment. Superior mediastinum unremarkable. No acute cervical spinal pathology. There is no mastoid effusion and the middle ear cavity is clear. Right frontal sinus aplastic. There is membrane thickening in the left frontal sinus. There is slight membrane thickening in the ethmoid air cells but no paranasal sinus air-fluid level. IMPRESSION: Periapical lucencies associated with the bilateral maxillary bicuspids, left greater than right, but no adjacent abscess or drainable fluid collection. No airway lesion. No evidence for acute sinusitis. Dictated by: Dictated on workstation # [id number]
[2019-08-13] MEDS ORDERED: HYDR-4226 PO (17:04)
[2019-08-13] MEDS ORDERED: CLIN300C11 PO (17:04)
[2019-08-13 18:08] VITALS: BP 122/82
== END 2019-08-13 18:10 | disposition home or self-care (01) ==
LOC: ER 16:03
DX: K04.7 Periapical abscess without sinus (principal)
CPT/HCPCS: 36415; 70491; 80048; 85025; 86308; 96361; 96365; 96375